=== PATIENT | male | born 1955 | race African-American/Black ===

== ENCOUNTER 2025-01-09 11:46 | Emergency (ER) | payer MEDICARE, MEDICAID ==
[~2025-01-09] VITALS: Ht 177.8 cm; Wt 73.0 kg
[2025-01-09 11:51] VITALS: O2SAT 96
[2025-01-09] MEDS: LORAZEPAM 2MG/ML UD SYRINGE IM NR (12:40)
[2025-01-09] MEDS: HALOPERIDOL LACTATE 5MG/ML VIAL IM ONE (12:40)
[2025-01-09] MEDS: DIPHENHYDRAMINE 50MG/ML VIAL IM ONE (12:40)
[2025-01-09 15:48] LABS: HEMATOCRIT. 32.6 % (42.0-52.0); HEMOGLOBIN. 10.5 g/dL (14.0-18.0); MEAN PLATELET VOLUME 7.7 fl (7.4-10.4); PLATELET 311 x1000/uL (130-400); RED BLOOD CELL COUNT 3.74 mill/uL (4.7-6.1); RED CELL DISTRIBUTION WIDTH 15.4 % (11.6-14.6)
[2025-01-09 16:03] LABS: CREATININE 0.9 mg/dL (0.6-1.3); UREA NITROGEN BLOOD 14 mg/dL (9-23)
[2025-01-09 16:05] LABS: ASPARTATE AMINOTRANSFERASE 39 IU/L (<34); BILIRUBIN DIRECT 0.1 mg/dL (<=3.0); BILIRUBIN TOTAL 0.3 mg/dL (0.1-1.0); PROTEIN TOTAL 6.6 g/dL (6.0-8.3)
[2025-01-09 17:25] LABS: EOSINOPHILS % MANUAL 2.0 % (0.0-5.0); LYMPHOCYTES % MANUAL 26.0 % (20.0-50.0); MONOCYTES % MANUAL 12.0 % (2.0-8.0); NEUTROPHILS % MANUAL 60.0 % (45.0-75.0); PLATELET ESTIMATE NORMAL
[2025-01-09 20:53] LABS: CLARITY URINE CLEAR (CLEAR); COLOR URINE YELLOW (YELLOW); GLUCOSE URINE NEGATIVE (NEGATIVE); KETONES URINE NEGATIVE (NEGATIVE); LEUKOCYTE ESTERASE URINE NEGATIVE (NEGATIVE); NITRITE URINE NEGATIVE (NEGATIVE); OCCULT BLOOD URINE NEGATIVE (NEGATIVE); PH URINE 6.5 (4.5-8.0); PROTEIN URINE NEGATIVE (NEGATIVE); SPECIFIC GRAVITY URINE 1.011 (1.005-1.030); UROBILINOGEN URINE 1.0 E.U./dL (0.2-1.0)
[2025-01-09 20:58] LABS: *AMPHETAMINES SCREEN URINE NEGATIVE (NEGATIVE); *BARBITURATES SCREEN URINE NEGATIVE (NEGATIVE); *BENZODIAZEPINES SCREEN URINE NEGATIVE (NEGATIVE); *COCAINE SCREEN URINE NEGATIVE (NEGATIVE); CANNABINOID URINE SCREEN PRESUMPTIVE POSITIVE (NEGATIVE); ECSTASY MDMA SCREEN URINE NEGATIVE (NEGATIVE); METHADONE URINE SCREEN NEGATIVE (NEGATIVE); OPIATES URINE SCREEN NEGATIVE (NEGATIVE); PHENCYCLIDINE URINE SCREEN NEGATIVE (NEGATIVE)
[2025-01-10] MEDS: ZIPRASIDONE MESYLATE 20MG/VIAL IM ONE (00:55)
[2025-01-10] MEDS: HALOPERIDOL LACTATE 5MG/ML VIAL IM ONE (05:39)
[2025-01-10 13:07] VITALS: BP 99/75; PULSE 88; RESP 18; TEMP 36.3; O2SAT 94
[2025-01-10] MEDS ORDERED: RISPERIDONE 0.5MG TABLET PO SCH (21:00)
== END 2025-01-10 13:17 ==
LOC: EDBD 11:46 → ER 11:46
DX: R45.851 Suicidal ideations (principal); F23 Brief psychotic disorder; E05.00 Thyrotoxicosis with diffuse goiter without thyrotoxic crisis or storm; Z79.899 Other long term (current) drug therapy; Z20.822 Contact with and (suspected) exposure to COVID-19
CPT/HCPCS: 80076; 80305; 80048; 81003; 80307; 80329; 80320; 82140; 85025; 36415; 70450; 93005; 96372 ×2; 99291; 87426; J1200; J1630 ×2; J2060; J3486; G0480